=== PATIENT | female | born 1945 | race African-American/Black ===

== ENCOUNTER 2020-06-30 13:50 | Emergency (ER) | payer MEDICARE ==
[2020-06-30] MEDS ORDERED: SODIUM CHLORIDE 0.9% 1000 ML 1,000 ML ONE (14:19)
[2020-06-30] MEDS ORDERED: ALTEPLASE 100 MG INJ KIT IV ONE ×2 (14:23)
[2020-06-30] MEDS ORDERED: SODIUM CHLORIDE 0.9% 50 ML IVPB IV ONE (14:23)
--- NOTE | 2020-06-30 14:23 | Cat Scan Report ---
CT HEAD WITHOUT CONTRAST INDICATION / CLINICAL INFORMATION: Cerebrovascular accident.. TECHNIQUE: All CT scans at this location are performed using CT dose reduction for ALARA by means of automated e xposure control. COMPARISON: None available. FINDINGS: HEMORRHAGE: No evidence of intracranial hemorrhage or extra-axial fluid collection. EXTRA-AXIAL SPACES: Cortical sulci, sylvian fissures and basilar cisterns have an unremarkable appear ance given the patient's age of 75 years. VENTRICULAR SYSTEM: The third and lateral ventricles are of normal size and configuration. CEREBRAL PARENCHYMA: No areas of abnormal brain parenchymal attenuation are identified. There is no i ndication of recent infarction. Incidental note is made of bilateral physiological calcification in t he basal ganglia regions. MIDLINE SHIFT OR HERNIATION: There is no mass effect. CEREBELLUM / BRAINSTEM: Brainstem and cerebellum have an unremarkable appearance. MIDLINE STRUCTURES:No abnormalities of the pituitary gland or pineal region are identified. INTRACRANIAL VESSELS: Extensively calcified atherosclerotic plaque is seen along the course of the an terior circulation bilaterally extending out into the M1 segments of both middle cerebral arteries. O ssified atherosclerotic plaque is also observed in the vertebral arteries bilaterally. ORBITS: Status post bilateral cataract surgery. No additional abnormality. SOFT TISSUES of HEAD: No significant abnormality. CALVARIUM: Evaluation of bone windows reveals no abnormalities. PARANASAL SINUSES / MASTOID AIR CELLS: Abnormal soft tissue attenuation is present in the maxillary s inus consistent with mucosal thickening, retention cyst or polyp.. Visualized portions of the paranas al sinuses are otherwise free from inflammatory mucosal disease. Mastoid air cells are normally pneum atized. IMPRESSION: 1. No acute intracranial abnormality. 2. Advanced intracranial atherosclerotic disease. CODE STROKE: Time of Communication (TRAFFIC CONTROL SPECIALIST/CDT): 1322 Central standard time Licensed Practitioner Receiving Report: The results of this examination were discussed with the [facility] physician. Signer Name: Erick Van MD Signed: 06/30/2020 2:19 PM Workstation Name: [id number]
[2020-06-30] MEDS ORDERED: SODIUM CHLORIDE 0.9% 1000 ML 1,000 ML IV ONE (14:24)
--- NOTE | 2020-06-30 14:25 | Consultation ---
History of Present Illness Consult date: 06/30/20 Medications and Allergies Allergies Allergy/AdvReac Type Severity Reaction Status Date / Time No Known Allergies Allergy Unverified 09/22/15 11:14 Assessment and Plan [facility] Consult Note # Demographics Consult Type: Acute Stroke Level 1 (0-4.5 hrs) Patient Location: Emergency Room First Name: Jenae Last Name: Maricruz Date of : 1945 Age: 75 Gender: Female Time of Initial Page ( Time): 06/30/2020, 13:52 Time of Return Call ( Time): 06/30/2020, 13:54 # HPI History: 75F was in car with windows up for some time, hot in the car per EMS. A fib with RVR. Not febrile reportedly, though EMS felt she was hot to touch. Noted to have left side weakness by EMS and right pupil sluggish. Probably last well 13:00. Daughter reports she picked mother up at 12:15, normal sometime after that. Possible Thrombolytic candidate: not on warfarin or NOACs, no intracranial hemorrhage history, no recent major surgery, no known active major internal bleeding, no known blood disorders # Scores Time of exam and NIHSS (): 06/30/2020, 14:12 Level of Consciousness 1a: [0] = Alert; keenly responsive LOC Questions 1b: [2] = Answers neither correctly LOC Commands 1c: [2] = Performs neither correctly Best Gaze 2: [1] = Partial gaze palsy Visual 3: [0] = No visual loss Facial Palsy 4: [2] = Partial paralysis Motor Arm Left 5a: [4] = No movement Motor Arm Right 5b: [0] = No drift Motor Leg Left 6a: [4] = No movement Motor Leg Right 6b: [0] = No drift Limb Ataxia 7: [0] = Absent Sensory 8: [0] = Normal Best Language 9: [0] = No aphasia Dysarthria 10: [0] = Normal Extinction and Inattention 11: [0] = No abnormality NIHSS Total: 15 # PMH-FH- Past Medical History: Diabetes, hypertension # Data Glucose: hyperglycemia, [address] personally read by me ( Time): 06/30/2020, 13:[address]: no bleed, preliminarily reviewed by me, please refer to radiology read for official reading # Assessment Impression: Ischemic Stroke (Acute), disabling deficit. # Plan Thrombolytic/Intervention: IV thrombolytic, IV alteplase 0.9 mg/kg, max dose 90 mg; 10% of dose given over 1 minute IVP, remaining 90% given as infusion over 1 hour Intraarterial Exclusion: pending CTA head/neck. Time IV Thrombolytic Recommended (Eastern Time): 06/30/2020, 14:16 Imaging: (urgency: routine admission): MRI Brain without contrast Diagnostic Test: echo without bubble study Thrombolytic Administration Recommendations: I reviewed the risks/benefits/alternatives of Thrombolytic with patient. They understand there is potential of life threatening hemorrhage from Thrombolytic. I stated that I believe benefit outweighs risk. They wish to proceed with Thrombolytic, BP goal< 180/105 for 24hrs post Thrombolytic administration, Use Labetolol 10-20mg IV prn or Nicardipine gtt to maintain BP parameters, No antiplatelets or anticoagulants for next 24 hrs unless indicated for emergent IA procedure or other life threatening situation, ICU admission, Call back if there is any decline in neurological condition Other: LDL < 70, telemetry monitoring, I have discussed my recommendations with the referring provider Additional Recommendations: If large vessel occlusion is found on CTA, urgent transfer for IA therapy, otherwise can admit locally to ICU. If patient does not quickly improve with IVF (hypotensive), then would proceed with IV tPA. Disposition: admit # Logistics Telemedicine: Interactive 2 way audio and visual telecommunication technology was utilized during this visit
--- NOTE | 2020-06-30 14:37 | Cat Scan Report ---
CTA NECK WITH CONTRAST 06/30/2020 INDICATION / CLINICAL INFORMATION: MAIN. Stroke symptoms COMPARISON: None. TECHNIQUE: Routine CTA of the neck is performed. 3-D/MIP reformats were postprocessed. Percentage st enosis is determined by direct quantitative measurements of diseased internal carotid artery diameter compared with normal distal internal carotid artery reference segments or by criteria similar to EVANGELINA CET where applicable. All CT scans at this location are performed using CT dose reduction for ALARA b y means of automated exposure control. CONTRAST: 100 ml of Omnipaque 350 FINDINGS: Carotid bifurcations: No evidence of carotid bifurcation stenosis Carotid arteries: No significant abnormality. Cervical vertebral arteries: No significant abnormality. Aortic arch: No significant abnormality. Emphysematous changes are noted in the upper lung waters. Incidental note is made of some prominent lymph nodes in the left submandibular region, with a maximu m length of approximately 2 cm. This is larger than is typically seen in this location, and may be ev idence of reactive change or neoplasm. IMPRESSION: No evidence of acute vascular abnormality. Left submandibular adenopathy. Signer Name: Andrews Boykin MD Signed: 06/30/2020 2:33 PM Workstation Name: [id number]
--- NOTE | 2020-06-30 14:41 | Cat Scan Report ---
CTA HEAD WITH CONTRAST 06/30/2020 HISTORY: Stroke symptoms. COMPARISON: None. TECHNIQUE: All CT scans at this location are performed using CT dose reduction for ALARA by means of automated exposure control.. 3-D/MIP reformats postprocessed. Percentage stenosis is determined by d irect quantitative measurements of diseased internal carotid artery diameter compared with normal dis keyanna internal carotid artery reference segments or by criteria similar to NASCET where applicable. CONTRAST: 100 ml of Omnipaque 350 FINDINGS: CTA HEAD: Intracranial vertebral arteries: No significant abnormality. Basilar artery: No significant abnormality. Posterior cerebral arteries: No significant abnormality. Intracranial internal carotid arteries: There is marked narrowing and irregularity of the right dista l internal carotid artery at the level of the skull base and cavernous sinus. This vessel is highly s tenotic and nearly completely occluded there may be a defined filling defect, consistent with thrombu s in the distal aspect of the right ICA. Left distal ICA demonstrates no evidence of stenosis or occl usion. Anterior cerebral arteries: No significant abnormality. Middle cerebral arteries: There is prominent irregularity and limited opacification of the right midd le cerebral artery. There appears to be several branch occlusions, with relative paucity of visualize d vascularity in the right frontal lobe, consistent with vascular occlusion. Moderately severe athero sclerotic irregularity and segmental stenosis is present in the left MCA. Dural venous sinuses:Not optimally opacified. No significant abnormality. Additional findings: None. IMPRESSION: 1. Stenosis and possible thrombus presence in right distal ICA, with evidence of right MCA branch occ lusions. See above discussion. Signer Name: Andrews Boykin MD Signed: 06/30/2020 2:37 PM Workstation Name: [id number]
[2020-06-30 14:42] LABS: Basophils # (Auto) 0.1 K/mm3 (0.0-0.1); Eosinophils # (Auto) 0.5 K/mm3 (0.0-0.4); Eosinophils % (Auto) 6.7 % (0.0-4.3); Hematocrit 36.6 % (30.3-42.9); Hemoglobin 11.9 gm/dl (10.1-14.3); Lymphocytes % (Auto) 26.8 % (13.4-35.0); Mean Corpuscular HGB Conc 33 % (30-34); Mean Corpuscular Volume 85 fl (79-97); Monocytes # (Auto) 0.6 K/mm3 (0.0-0.8); Monocytes % (Auto) 8.2 % (0.0-7.3); Platelet Count 236 K/mm3 (140-440); Red Blood Count 4.32 M/mm3 (3.65-5.03); Red Cell Distribution Width 14.5 % (13.2-15.2)
--- NOTE | 2020-06-30 14:47 | Emergency Department Report ---
ED Neuro Deficit HPI - General Chief Complaint: Neuro Symptoms/Deficit Stated Complaint: UNRESPONSIVE Time Seen by Provider: 06/30/20 13:51 Source: EMS Mode of arrival: Stretcher Limitations: Language Barrier, Altered Mental Status - History of Present Illness Initial Comments: 75-year-old female, history of hypertension, diabetes, hyperlipidemia, presents to ED with altered mental status. Last known well time was approximately 13:00 PM. At that time, patient's daughter left her in the car while she went inside to receive her Covid vaccine. Daughter states patient did not want her to leave the air conditioning on, so car was off and windows were rolled up. When daughter came back, patient was leaning to her left side and unresponsive. Upon EMS arrival it was noted that patient was not using her left side. Accu-Chek was 180. They report patient's temperature was normal. Blood pressure was 100/palp. Patient transported here as a stroke alert. Daughter reports patient has received both doses of her Pfizer COVID-19 vaccine. -: This afternoon Last Observed Normal: 13:00 Location: left arm, left leg, altered Presenting Symptoms: Present: Weak/Paralyzed One Side, Altered Mental Status Place: other Severity: severe Quality: weak, constant Improves With: none Worsens With: none On Anticoagulants: No Treatments Prior to Arrival: none - Related Data Allergies/Adverse Reactions: Allergies Allergy/AdvReac Type Severity Reaction Status Date / Time No Known Allergies Allergy Unverified 09/22/15 11:14 ED Review of Systems ROS: Stated complaint: UNRESPONSIVE Other details as noted in HPI Comment: Unobtainable due to pts medical conditions ED Neuro Physical Exam - General Limitations: Language Barrier, Altered Mental Status General appearance: lethargic Suspected Stroke: Yes - Head Head exam: Present: atraumatic, normocephalic - Eye Eye exam: Present: other (Rightward gaze deviation) - ENT ENT exam: Present: mucous membranes moist - Neck Neck exam: Present: normal inspection - Respiratory Respiratory exam: Present: normal lung sounds bilaterally. Absent: respiratory distress - Cardiovascular Cardiovascular Exam: Present: tachycardia, irregular rhythm - GI/Abdominal GI/Abdominal exam: Present: soft. Absent: distended, tenderness - Extremities Exam Extremities exam: Present: normal inspection - Neurological Exam Neurological exam: Present: altered - NIHSS Assessment Interval: Baseline 1a. Level of Consciousness: arousable/minor stimuli 1b. LOC Questions: answers no questions correctly 1c. LOC Commands: performs no tasks correctly 2. Best Gaze: partial gaze palsy 3. Visual: no visual loss 4. Facial Palsy: partial paralysis 5b. Motor Arm Right: no drift 5a. Motor Arm Left: no movement 6a. Motor Leg Left: no gravity effort 6b. Motor Leg Right: no drift 7. Limb Ataxia: absent 8. Sensory: normal 9. Best Language: severe aphasia 10. Dysarthria: normal 11. Extinction/Inattention: profound inattention Total Score: 19 Stroke Severity: Moderate to Severe Stroke - Psychiatric Psychiatric exam: Present: normal affect, normal mood - Skin Skin exam: Present: warm, dry, intact, normal color ED Course Vital Signs 06/30/20 06/30/20 06/30/20 13:50 14:30 14:32 Temperature Pulse Rate [ Right Arm] Respiratory Rate [Right Arm ] Blood Pressure 101/40 85/47 Blood Pressure [Right Arm] O2 Sat by Pulse 97 Oximetry O2 Sat by Pulse Oximetry [ Right Arm] 06/30/20 06/30/20 15:17 15:21 Temperature 96.7 F L Pulse Rate [ 84 Right Arm] Respiratory 16 Rate [Right Arm ] Blood Pressure Blood Pressure 97/61 [Right Arm] O2 Sat by Pulse Oximetry O2 Sat by Pulse 100 Oximetry [ Right Arm] - Reevaluation(s) Reevaluation #1: 06/30/20 15:37 BP improved. Currently 121/70. Pt moving left arm, rightward gaze deviation improved. Reevaluation #2: 06/30/20 15:42 Patient appears to have converted spontaneously from A. fib to normal sinus rhythm. - Consultations Consultation #1: 06/30/20 14:49 Dr Burnett informed of CTA results. Recommend transfer. 06/30/20 14:50 [facility] stroke pager paged Consultation #2: 06/30/20 14:[address] Lele Blue with [facility] stroke team. States will give call back. 06/30/20 15:[address] Blue. - Lab Data Result diagrams: 06/30/20 14:13 06/30/20 14:13 Lab Results 06/30/20 06/30/20 06/30/20 Range/Units 14:13 14:13 14:13 WBC 7.4 (4.5-11.0) K/mm3 RBC 4.32 (3.65-5.03) M/mm3 Hgb 11.9 (10.1-14.3) gm/dl Hct 36.6 (30.3-42.9) % MCV 85 (79-97) fl MCH 28 (28-32) pg MCHC 33 (30-34) % RDW 14.5 (13.2-15.2) % Plt Count 236 (140-440) K/mm3 Lymph % (Auto) 26.8 (13.4-35.0) % [place] % (Auto) 8.2 H (0.0-7.3) % Eos % (Auto) 6.7 H (0.0-4.3) % Baso % (Auto) 1.0 (0.0-1.8) % Lymph # (Auto) 2.0 (1.2-5.4) K/mm3 [place] # (Auto) 0.6 (0.0-0.8) K/mm3 Eos # (Auto) 0.5 H (0.0-0.4) K/mm3 Baso # (Auto) 0.1 (0.0-0.1) K/mm3 Seg Neutrophils % 57.3 (40.0-70.0) % Seg Neutrophils # 4.3 (1.8-7.7) K/mm3 PT 13.3 (12.2-14.9) Sec. INR 1.03 (0.87-1.13) APTT 27.4 (24.2-36.6) Sec. Thrombin Time 18.1 (15.1-19.6) Sec. Sodium 132 L (137-145) mmol/L Potassium 4.1 (3.6-5.0) mmol/L Chloride 95.5 L (98-107) mmol/L Carbon Dioxide 27 (22-30) mmol/L Anion Gap 14 mmol/L BUN 42 H (7-17) mg/dL Creatinine 1.0 (0.6-1.2) mg/dL Estimated GFR 54 ml/min BUN/Creatinine Ratio 42 % Glucose 68 (65-100) mg/dL Calcium 8.9 (8.4-10.2) mg/dL Total Creatine Kinase 70 (30-135) units/L CK-MB (CK-2) 2.5 (0.0-4.0) ng/mL CK-MB (CK-2) Rel Index 3.5 (0-4) Troponin T 0.073 H (0.00-0.029) ng/mL - EKG Data -: EKG Interpreted by Me EKG shows normal: QRS complexes, ST-T waves Rate: tachycardia (rate 134) Interpretation: no acute changes - Radiology Data Radiology results: report reviewed, image reviewed - Medical Decision Making 75-year-old female presents to ED with an acute stroke. Patient is aphasic, with left-sided weakness, rightward gaze deviation, and some left-sided neglect. Patient arrived initially hypotensive, systolic BP in the 80s. Accu-Chek normal. Patient seen and evaluated by teleneurologist. Decision was made to administer TPA. Patient also given 1.5 L bolus of IV fluids. BP currently 121/70. Patient now moving the left arm somewhat, whereas it was initially flaccid. Gaze deviation also improved, although pt does not seem to be looking leftward, past midline. Patient has also spontaneously converted to normal sinus rhythm. CTA shows right MCA occlusion. Pt accepted by Dr Blue at [facility] for neurointervention. - Differential Diagnosis CVA, dehydration, heat stroke Critical Care Time: Yes Critical care time in (mins) excluding proc time.: 35 Critical care attestation.: If time is entered above; I have spent that time in minutes in the direct care of this critically ill patient, excluding procedure time. Critical Care Time: 35 min ED Disposition Clinical Impression: Acute CVA (cerebrovascular accident), Hypotension, Acute renal failure, Atrial fibrillation, Hyponatremia, Elevated troponin Disposition: DC/TX-70 ANOTHER TYPE HLTHCARE Is pt being admited?: Yes Condition: Stable Referrals: PRIMARY CARE, [Primary Care Provider] - 3-5 Days Time of Disposition: 15:10
[2020-06-30 14:48] LABS: INR 1.03 (0.87-1.13)
[2020-06-30 14:49] LABS: Partial Thromboplastin Time 27.4 Sec. (24.2-36.6); Thrombin Time 18.1 Sec. (15.1-19.6)
[2020-06-30 14:56] LABS: Creatine Kinase MB 2.5 ng/mL (0.0-4.0)
[2020-06-30 14:57] LABS: Calcium 8.9 mg/dL (8.4-10.2)
[2020-06-30 15:48] VITALS: BP 150/76
[2020-06-30 16:16] LABS: Chol/HDL Ratio 1.88 %
--- NOTE | 2020-07-01 10:52 | Electrocardiograph Report ---
[facility] Test Date: 2020-06-30 Test Time: 14:35:30 Pat Name: OLIVER MACK Department: Room: Gender: F Strategic Planning Consultant: : 1945 Requested By: HOANG NGUYEN Order Number: [id number] Reading MD: Dagmar Quinteros Measurements Intervals Lolita Rate: 134 P: SD: QRS: 21 QRSD: 78 T: 160 QT: 319 QTc: 477 Interpretive Statements Rapid atrial fibrillation Nonspecific repol abnormality, diffuse leads No previous ECG available for comparison Electronically Signed On 07-01-2020 10:52:16 EDT by Dagmar Quinteros
== END 2020-06-30 16:04 | disposition other institution (70) ==
LOC: ED 13:50
DX: I63.9 Cerebral infarction, unspecified (principal); I95.9 Hypotension, unspecified; N17.9 Acute kidney failure, unspecified; I48.91 Unspecified atrial fibrillation; E87.1 Hypo-osmolality and hyponatremia; R77.8 Other specified abnormalities of plasma proteins; E78.5 Hyperlipidemia, unspecified; E11.9 Type 2 diabetes mellitus without complications; I10 Essential (primary) hypertension
CPT/HCPCS: 36415; 37212; 70450; 70496; 70498; 80048; 80061; 82550; 82553; 82962; 84484; 85025; 85610; 85670; 85730; 93005; 99291; J2997; J7030; Q9967